=== PATIENT | male | born 1970 | race Caucasian/White ===

== ENCOUNTER 2023-08-02 08:29 | Day surgery (SDC) | payer BC ==
[~2023-08-02 08:29] MED LIST: Lactated Ringers 1,000 ML IV SCH
[2023-08-02] MEDS ORDERED: Lidocaine 2% 5 ML SDV ONE (09:58)
[2023-08-02] MEDS ORDERED: Propofol 200 MG/20 ML SDV ONE ×3 (09:58→10:45)
== END 2023-08-02 11:50 | disposition home or self-care (01) ==
LOC: MW.SDS 08:29
PROVIDERS: ATTEND Surgery
DX: K52.9 Noninfective gastroenteritis and colitis, unspecified (principal); K63.89 Other specified diseases of intestine; K57.30 Diverticulosis of large intestine without perforation or abscess without bleeding; K64.4 Residual hemorrhoidal skin tags; K64.8 Other hemorrhoids
CPT/HCPCS: 45380; J2704; J7120; J3490